=== PATIENT | female | born 1985 | race Two or more races ===

== ENCOUNTER 2016-11-07 10:20 | Emergency (ER) | payer OTHER ==
[~2016-11-07] VITALS: Ht 149.9 cm; Wt 59.0 kg
[2016-11-07] MEDS ORDERED: NKM (10:32)
[2016-11-07] MEDS ORDERED: Acetaminophen 500mg (ES) tab PO ONE (11:00)
[2016-11-07 12:00] VITALS: BP 115/69
[2016-11-07] MEDS ORDERED: TYLENOL EXTRA500 MG ORAL (12:34)
[2016-11-07] MEDS ORDERED: CYCLOBENZAPRINE10 MG ORAL (12:34)
[2016-11-07 12:55] VITALS: BP 115/69
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
--- NOTE | 2016-11-07 14:47 | Diagnostic Imaging Report ---
Indication: PAIN Technique: 3 views of the lumbar spine Comparison: None Findings:Vertebral body heights and disc spaces are preserved. Pedicles are intact. Sacral arches are preserved. Impression:Negative
== END 2016-11-07 12:55 | disposition home or self-care (01) ==
LOC: EMR 10:35
DX: S16.1XXA Strain of muscle, fascia and tendon at neck level, initial encounter (principal); V89.2XXA Person injured in unspecified motor-vehicle accident, traffic, initial encounter; Y93.9 Activity, unspecified; Y92.410 Unspecified street and highway as the place of occurrence of the external cause
CPT/HCPCS: 72020; 81025; 99284